=== PATIENT | male | born 1980 | race Two or more races ===

== ENCOUNTER → 2019-10-31 | Outpatient (CLI) | payer MEDICAID | END | disposition home or self-care (01) | LOC: LAB 14:23 | PROVIDERS: ATTEND Nurse Practitioner Family | DX: Z11.3 Encounter for screening for infections with a predominantly sexual mode of transmission (principal); R36.9 Urethral discharge, unspecified; Z20.2 Contact with and (suspected) exposure to infections with a predominantly sexual mode of transmission | CPT/HCPCS: 87591 ==

== ENCOUNTER 2019-12-13 03:13 | Emergency (ER) | payer MEDICAID ==
[~2019-12-13] VITALS: Ht 180.3 cm; Wt 77.1 kg
[2019-12-13 04:22] LABS: Urine Bacteria MANY /hpf (None Seen); Urine Blood TRACE /uL (Negative); Urine Mucus FEW (None Seen); Urine Specific Gravity 1.023 (1.001-1.035); Urine Sperm PRESENT /hpf (None Seen); Urine WBC 18 /hpf (0 - 3)
[2019-12-13] MEDS ORDERED: AZITHROMYCIN 250 MG TAB PO ONE (05:15)
[2019-12-13] MEDS ORDERED: cefTRIAXone SODIUM 250 MG VL IM ONE (05:15)
[2019-12-13 05:18] VITALS: BP 117/81
[2019-12-13] MEDS ORDERED: ACETAMINOPHEN 325 MG TAB PO ONE ×2 (05:30)
[2019-12-13] MEDS ORDERED: KETOROLAC TROMETH 60MG/2ML VIAL IM ONE (05:30)
[2019-12-13] MEDS ORDERED: LIDOCAINE 1% HCL (LOCAL ANESTH.) INJ 20ML MDV IJ ONE (06:00)
== END 2019-12-13 06:22 | disposition home or self-care (01) ==
LOC: ER 03:15
DX: N39.0 Urinary tract infection, site not specified (principal); Z20.2 Contact with and (suspected) exposure to infections with a predominantly sexual mode of transmission; R07.0 Pain in throat; Z88.8 Allergy status to other drugs, medicaments and biological substances
CPT/HCPCS: 81001; 96372; 99283; J0696; J2001

== ENCOUNTER 2020-02-12 07:09 | Emergency (ER) | payer MEDICAID ==
[~2020-02-12] VITALS: Ht 182.9 cm; Wt 77.1 kg
[2020-02-12] MEDS ORDERED: cefTRIAXone SOD 500 MG VL IM ONE (08:15)
[2020-02-12 08:31] VITALS: BP 115/73
[2020-02-12 08:52] LABS: Urine Bacteria NONE SEEN /hpf (None Seen); Urine Blood TRACE /uL (Negative); Urine Mucus FEW (None Seen); Urine Specific Gravity 1.025 (1.001-1.035); Urine WBC 31 /hpf (0 - 3)
== END 2020-02-12 08:46 | disposition home or self-care (01) ==
LOC: ER 07:09
DX: S90.112A Contusion of left great toe without damage to nail, initial encounter (principal); N34.2 Other urethritis; Z20.2 Contact with and (suspected) exposure to infections with a predominantly sexual mode of transmission; Z88.8 Allergy status to other drugs, medicaments and biological substances; W22.8XXA Striking against or struck by other objects, initial encounter; Y93.89 Activity, other specified; Y92.89 Other specified places as the place of occurrence of the external cause; Y99.0 Civilian activity done for income or pay
CPT/HCPCS: 73630; 81001; 96372; 99284; J0696